=== PATIENT | female | born 1995 ===

== ENCOUNTER 2024-09-21 20:19 | Emergency (ER) | payer SELFPAY ==
[~2024-09-21] VITALS: Ht 160 cm; Wt 82.5 kg
[2024-09-21] MEDS ORDERED: Metoclopramide HCl 5MG / ML 2ML Vial IV ONE (20:30)
== END 2024-09-21 23:32 | disposition left against medical advice (07) ==
LOC: ER 20:19
DX: R11.2 Nausea with vomiting, unspecified (principal); R73.9 Hyperglycemia, unspecified; Z53.29 Procedure and treatment not carried out because of patient's decision for other reasons
CPT/HCPCS: 82947; 99283